=== PATIENT | female | born 1940 | race Caucasian/White ===

== ENCOUNTER 2022-03-24 21:06 | Emergency (ER) | payer MEDICARE ==
[2022-03-25] MEDS ORDERED: ENDOCET 5-3251 EACH PO (00:32)
== END 2022-03-25 00:40 | disposition home or self-care (01) ==
LOC: ER1 21:06
DX: S52.531A Colles' fracture of right radius, initial encounter for closed fracture (principal); W01.0XXA Fall on same level from slipping, tripping and stumbling without subsequent striking against object, initial encounter; Y92.009 Unspecified place in unspecified non-institutional (private) residence as the place of occurrence of the external cause; Z88.8 Allergy status to other drugs, medicaments and biological substances
CPT/HCPCS: 29125; 73110; 99283